=== PATIENT | female | born 1930 | race Caucasian/White ===

== ENCOUNTER 2016-02-17 08:52 | Emergency (ER) | payer MEDICARE ==
[~2016-02-17 08:52] MED LIST: ACET325T51 PO; CHOL10008 PO; CLOB15CR3 TOP; DENO60DI SQ; DESO15CR25 TOP; DOCU250C2 PO; FURO40TA4 PO; HYDR200T PO; HYOS0.1281 SL; IRON PO; LACT460C PO; LIDOCAINE TOPICAL; METO25TA6 PO; MULT-1018 PO; OMEP-113 PO; VIT1CAPS10 PO; [UNRECOGNIZED DRUG - OTHER] PO
[2016-02-17 09:09] VITALS: BP 106/67; PULSE 57; RESP 24; O2SAT 92
--- NOTE | 2016-02-17 09:47 | ED.REPORT ---
HPI-General Illness Date of Service Feb 17, 2016 ED Provider: Yaritza Kim MD Pt is an 85 y/o female w/ a hx of lupus, CHF, severe mitral regurgitation, presenting to the ED with family c/o cough onset 8 days ago. She was seen by her PCP on day of onset and started on a Z-pack without relief. A flu swab was not performed at that time. She c/o associated gradually increasing generalized weakness, mildly increased SOB, low-grade fever, nasal congestion. She denies CP , increased edema, N/V/D. She denies any history of asthma or COPD. Nursing Notes Stated Complaint: POSS PNEUMONIA Chief Complaint: Respiratory Complaints Nursing Notes Reviewed: Yes Allergies: Coded Allergies: Sulfa (Sulfonamide Antibiotics) (Verified Allergy, Unknown, 09/16/13) "In my teens I was given it, I was told if I can avoid it, to avoid it." sertraline (Verified Allergy, Unknown, "SLOW DOWN", 09/18/13) tramadol (Verified Allergy, Unknown, 09/18/13) metoclopramide (Verified Adverse Reaction, Intermediate, Extrapyramidal Symptoms, 10/10/13) codeine (Verified Adverse Reaction, Unknown, JUST DOESN'T LIKE IT, 09/16/13 ) "I just don't like the feeling. I get that way out, spacey feeling." naproxen (Verified Adverse Reaction, Unknown, GI BLEED, 09/16/13) Scheduled ([Lidocaine]) 5 % TOPICAL QID ([natural brand iron]) PO 3x/week Cholecalciferol (Vitamin D3) (Vitamin D3) 1,000 Unit Tab.chew 1,000 UNIT PO DAILY Clobetasol Propionate/Emoll (Clobetasol Emollient 0.05% Crm) 15 Gm Cream..g. 1 APPL TOP BID Denosumab (Prolia) 60 Mg/1 Ml Syringe 60 MG SQ [id number] Desonide (Desonide Cream) 15 Gm Cream..g. 1 APPLIC TOP BID Furosemide (Furosemide) 40 Mg Tablet 40 MG PO BID Hydroxychloroquine Sulfate (Plaquenil) 200 Mg Tablet 200 MG PO DAILY Hyoscyamine SL (Levsin SL) 0.125 Mg Tab.subl 0.125 MG SL TID Lactobacillus Acidophilus (Florajen) 460 Mg Capsule 460 MG PO DAILY Methylprednisolone (Medrol) 21 Tab/Pkg Tablet 1 TAB PO UD Follow package instructions Metoprolol Tartrate (Metoprolol Tartrate) 25 Mg Tablet 37.5 MG PO BID Multivitamin (Multi Vitamin Daily) 1 Each Tablet 1 EACH PO DAILY Omeprazole Magnesium (Omeprazole) 20 Mg Capsule.dr 20 MG PO BID Vit A/Vit C/Vit E/Zinc/Copper (Preservision Areds Softgel) 1 Each Capsule 1 EACH PO BID Scheduled PRN Acetaminophen (Acetaminophen) 325 Mg Tablet 650 MG PO Q4H PRN PRN For Fever Docusate Sodium (Docusate Sodium) 250 Mg Capsule 250 MG PO BID PRN PRN For Constipation General Time Seen by MD: 09:43 Chief Complaint Cough Hx Obtained From: Patient Arrived By: Walk-in Sudden in Onset?: No Onset Occurred: 1 week ago Symptom Duration: Since onset Severity: Current: No pain currently Severity: Maximum: No pain Recent Healthcare: Recent doctor visit Past Medical History Past Medical History Notes: Oncologist: Dr. Chamberlain Quarter Section Ironer: Dr. Stuart PCP: Dr. Jonathan Desai Past Medical History History of diastolic congestive heart failure Anemia. History of recurrent diverticular bleeding Atrial flutter History of gastroesophageal reflux disease. Severe mitral regurgitation by prior echocardiogram. Discoid lupus. Breast caner, status post BL mastectomy Past Surgical History Bilateral Mastectomy Bunionectomy Reports: Appendectomy, Tonsillectomy Smoking History Never Smoker Review of Systems Full Review of Systems Constitutional: Reports: Fever, Weakness - generalized, Denies: Chills Ears / Nose / Throat: Reports: Nasal congestion Respiratory: Reports: Non-productive cough, Shortness of breath Cardiovascular: Denies: Chest pain, Edema Complete sys rev & neg: except as marked. Physical Exam Vital Signs Vital Signs Date Time Temp Pulse Resp B/P Pulse Ox O2 Delivery O2 Flow Rate FiO2 02/17/16 12:42 89 17 129/86 95 Room Air 02/17/16 11:57 87 23 113/73 93 Room Air 02/17/16 11:31 67 16 94 Room Air 02/17/16 10:26 82 23 102/74 95 Room Air 02/17/16 09:09 36.4 57 24 106/67 92 Initial VS: Reviewed, Vital signs abnormal Head / Eyes: Atraumatic, Normocephalic, PERRL ENT: Mucous membranes moist, Conjunctiva normal, No scleral icterus Neck: Supple, Full range of motion Cardiovascular: Regular rate & rhythm, Heart sounds normal, Intact distal pulses Abdomen / GI: Soft, Non-tender, No guarding, No rebound, No distention Extremities: Vascular intact, Neuro intact, No swelling, No tenderness Skin: Warm, Dry, No cyanosis Neurologic: Alert, Oriented, Nonfocal Psychiatric: Mood/affect normal, Behavior normal, Normal thought content General/Constitutional: Awake, Alert, No acute distress, Cooperative, Not toxic appearing Skin warm to touch Respiratory / Chest: Atraumatic, No respiratory distress, No retractions Diffuse wheezing Coarse breath sounds throughout Interpretation & Diagnostics Lab Results Interpretation Result Diagram: 02/17/16 1000 02/17/16 1000 Test 02/17/16 09:30 02/17/16 10:00 Urine Color Straw (YELLOW) Urine Appearance Hazy (CLEAR,HAZY) Urine pH 6.0 (5.0-8.0) Urine Specific [place] 1.030 (1.003-1.035) Urine Protein Tracemg/dL (NEG,TRACE) Urine Glucose (UA) Negativemg/dL (NEGATIVE) Urine Ketones Negativemg/dL (NEGATIVE) Urine Occult Blood Negative (NEGATIVE) Urine Nitrite Negative (NEGATIVE) Urine Bilirubin Negative (NEGATIVE) Urine Urobilinogen Normalmg/dL (NORMAL) Urine Leukocyte Esterase Small (NEGATIVE) Urine RBC 0-2/hpf (0-2) Urine WBC 0-5/hpf (0-5) Urine Epithelial Cells Occasional/hpf (NONE-MOD) Urine Crystals None seen (NONE SEEN) Urine Bacteria Moderate/hpf (NONE-FEW) Urine Hyaline Casts None/lpf (NONE) Urine Granular Casts None seen (NONE SEEN) Urine Waxy Casts None seen (NONE SEEN) Urine Red Blood Cell Casts None seen (NONE SEEN) Urine White Blood Cell Casts None seen (NONE SEEN) Urine Mucus None seen (None Seen) Urine Trichomonas None seen (NONE SEEN) Urine Yeast None (NONE SEEN) Urinalysis Comment Urine Culture Reflexed Indicated Hold Urine Received (Received) White Blood Count 8.1th/mm3 (3.8-10.1) Red Blood Count 4.26mil/mm3 (3.90-5.20) Hemoglobin 14.0g/dL (12.0-15.6) Hematocrit 42.2% (35.0-46.0) Mean Corpuscular Volume 99.1fL (81-100) Mean Corpuscular Hemoglobin 32.9pg (27.0-35.0) Mean Corpuscular Hemoglobin Concent 33.2% (32.0-37.0) Red Cell Distribution Width 12.7% (12.3-15.4) Platelet Count 184bil/L (150-400) Neutrophils (%) (Auto) 69.8% (40-74) Lymphocytes (%) (Auto) 18.3% (14-46) Monocytes (%) (Auto) 10.4% (4-12) Eosinophils (%) (Auto) 0.9% (0-5) Basophils (%) (Auto) 0.5% (0-3) Prothrombin Time 10.7sec (8.1-12.5) Prothromb Time International Ratio 1.00ratio Sodium Level 138mEq/L (134-144) Potassium Level 3.6mEq/L (3.5-5.2) Chloride Level 98mEq/L (97-108) Carbon Dioxide Level 22mmol/L (18-29) Blood Urea Nitrogen 18mg/dL (8-27) Creatinine 0.74mg/dL (0.57-1.00) Estimat Glomerular Filtration Rate 107mL/min (>59) Glucose Level 107mg/dL (60-99) Lactic Acid Level 1.6mmol/L (0.4-2.0) Calcium Level 9.4mg/dL (8.5-10.1) Total Bilirubin 0.4mg/dL (0.0-1.2) Aspartate Amino Transf (AST/SGOT) 33U/L (0-50) Alanine Aminotransferase (ALT/SGPT) 33U/L (0-32) Alkaline Phosphatase 83U/L (25-165) Troponin T < 0.010ug/L (0.0-0.011) Total Protein 7.8g/dL (6.4-8.4) Albumin 4.5g/dL (3.4-5.0) ECG Interpretation ECG Interpretation: A-fib rate 77 Old inferior infarct Time: 10:40 Interpreted by: ED physician Normal ECG Interpretation: No acute ischemic changes, No change from prior ECGs (05/30/15) X-Ray Chest Interpretation Chest Xray Interpretation: IMPRESSION: No acute cardiopulmonary disease process. Dictated by: Estela Hunter MD, PhD on 02/17/2016 at 10:02 Approved by: Estela Hunter MD, PhD on 02/17/2016 at 10:02 View: Portable, 1 view Interpretation / Wet Read by: Interpret - Radiologist Re-Eval/Medical Decision Time of Eval: 11:29 Re-Evaluation/Progress Note: Pt rechecked. Informed pt of plan for treatment. Pt understands and agrees with plan for treatment. F/U and RTER warnings given. All questions addressed. Time of Eval: 12:28 Re-Evaluation/Progress Note: Pt rechecked per request of discharging RN. She became anxious at time of discharge with associated increased respiratory rate and increased work of breathing. Once she was able to be calmed down, respiratory rate decreased to 21, O2 saturation on RA 97%, and heart rate 80 bpm. Still appropriate to be discharged. Counseled Regarding: Diagnosis, Lab results, Need for follow-up, When/why to return to ED Discharge & Departure Primary Impression: COPD exacerbation Additional Impression: Influenza Ruled Out: Acute CHF, STEMI (ST elevation myocardial infarction), Pneumonia Disposition: Home Discharge Condition All VS Reviewed: Yes Condition: Stable Additional Instructions: Your blood work and chest xray has come back very reassuring. Your flu swap did come back negative, however, you look as miserable as every single other flu patient I've seen and I suspect this is still flu. As you have started antibiotics, please finish the zpac you have a nebulizer at home and can use as needed I also suspect there is a degree of wheeze that will benefit from a short course of steroids, I have given you a medrol dose pack to use. I'm so sorry you feel miserable. I hope you heal quickly. Referrals: Jonathan Desai DO (PCP) Sintia Attestation Portions of this note were transcribed by Sanjay Sheffield. I, Dr. Kim personally performed the history, physical exam and medical decision-making; I reviewed and confirmed the accuracy of the information in the transcribed note. Signed by Sintia Pagan, 02/17/16 - 1000 copies to: Jonathan Desai Shawna L MD Feb 17, 2016 09:47 SANJAY SHEFFIELD Feb 17, 2016 10:03
--- NOTE | 2016-02-17 10:04 | DRSVH ---
PROCEDURE: X-RAY CHEST ONE VIEW, PORTABLE ([id number]) INDICATIONS: SOB TECHNIQUE: One view of the chest was acquired. COMPARISON: [facility], , CHEST 1VW (PORTABLE), 10/27/2013, 11:50. FINDINGS: Surgical changes and devices: Bilateral axillary surgical clips are stable. Lungs and pleura: No pleural effusions or pneumothorax. Lungs are clear. Mediastinum: Mediastinal contours appear normal. Heart size is enlarged, but stable compared to colt or examination. Descending aorta is tortuous. Bones and chest wall: No suspicious bony lesions. Overlying soft tissues appear unremarkable. IMPRESSION: No acute cardiopulmonary disease process. Dictated by: Estela Hunter MD, PhD on 02/17/2016 at 10:02 Approved by: Estela Hunter MD, PhD on 02/17/2016 at 10:02
[2016-02-17 10:11] LABS: BASOPHILS % (AUTO) 0.5 % (0-3); EOSINOPHILS % (AUTO) 0.9 % (0-5); MONOCYTES % (AUTO) 10.4 % (4-12); Mean Corpuscular Hemoglobin 32.9 pg (27.0-35.0); Mean Corpuscular Volume 99.1 fL (81-100); NEUTROPHILS % (AUTO) 69.8 % (40-74); Platelet Count 184 bil/L (150-400)
[2016-02-17] MEDS ORDERED: 0.9% Sodium Chloride 1,000 ML IV ONE (10:11)
[2016-02-17] MEDS ORDERED: MethylprednisoLONE Sodium Succinate 62.5 mg/mL 2 mL Inj IVPUSH ONE (10:15)
[2016-02-17] MEDS ORDERED: cefTRIAXone Inj 2,000 MG in IV Premix 1 EACH IV ONE (10:15)
[2016-02-17 10:26] VITALS: BP 102/74; PULSE 82; RESP 23; O2SAT 95
[2016-02-17] MEDS ORDERED: Albuterol-Ipratropium 3 mL Inhalation Solution NEB ONE (11:20)
[2016-02-17] MEDS ORDERED: MTH4T PO (11:26)
[2016-02-17 11:31] VITALS: PULSE 67; RESP 16; O2SAT 94
[2016-02-17 11:57] VITALS: BP 113/73; PULSE 87; RESP 23; O2SAT 93
[2016-02-17 12:42] VITALS: BP 129/86; PULSE 89; RESP 17; O2SAT 95
[2016-02-17 14:25] LABS: APPEARANCE,URINE HAZY (CLEAR,HAZY); COLOR,URINE STRAW (YELLOW); OCCULT BLOOD,URINE NEGATIVE (NEGATIVE)
[2016-02-17 14:26] LABS: UROBILINOGEN,URINE NORMAL (NORMAL)
== END 2016-02-17 12:43 | disposition home or self-care (01) ==
LOC: SED 08:52
DX: J44.1 Chronic obstructive pulmonary disease with (acute) exacerbation (principal); J11.1 Influenza due to unidentified influenza virus with other respiratory manifestations; Z88.2 Allergy status to sulfonamides; Z88.5 Allergy status to narcotic agent; Z88.8 Allergy status to other drugs, medicaments and biological substances
CPT/HCPCS: 36415; 71010; 80053; 81000; 83605; 84484; 85025; 85610; 87040; 87086; 87088; 87186; 87804; 93005; 94664; 96361; 96374; 99285; J2930; J7030; J7620

== ENCOUNTER 2016-10-10 16:35 | Emergency (ER) | payer MEDICARE ==
[~2016-10-10] VITALS: Ht 147.3 cm; Wt 60.0 kg
[~2016-10-10 16:35] MED LIST changes: +MTH4T PO
[2016-10-10 16:46] VITALS: BP 124/65; PULSE 78; RESP 16; O2SAT 97
--- NOTE | 2016-10-10 17:34 | ED.REPORT ---
HPI-Rash / Abscess Date of Service Oct 10, 2016 ED Provider: Matias Truong MD The pt is an 86 year old female with a history of type II diabetes, CHF, atrial flutter and chronic anemia who presents to the ED with family complaining of a rash about her bilateral lower extremities. The rash is characterized by little red spots on her bilateral shins. The pt denies pain or fever that she has had some itching. The pt noticed the rash two days ago and applied lotion to the area to moisturize the area. The pt wears bilateral leg braces but has never experienced a rash related to these before. She suspects that her symptoms are due to the recent hot weather and states that her skin is becoming irritated underneath the braces. Nursing Notes Chief Complaint: Skin Rash/Abscess Nursing Notes Reviewed: Yes Allergies: Coded Allergies: Sulfa (Sulfonamide Antibiotics) (Verified Allergy, Unknown, 09/16/13) "In my teens I was given it, I was told if I can avoid it, to avoid it." sertraline (Verified Allergy, Unknown, "SLOW DOWN", 09/18/13) tramadol (Verified Allergy, Unknown, 09/18/13) metoclopramide (Verified Adverse Reaction, Intermediate, Extrapyramidal Symptoms, 10/10/13) codeine (Verified Adverse Reaction, Unknown, JUST DOESN'T LIKE IT, 09/16/13 ) "I just don't like the feeling. I get that way out, spacey feeling." naproxen (Verified Adverse Reaction, Unknown, GI BLEED, 09/16/13) Scheduled ([Lidocaine]) 5 % TOPICAL QID ([natural brand iron]) PO 3x/week Cholecalciferol (Vitamin D3) (Vitamin D3) 1,000 Unit Tab.chew 1,000 UNIT PO DAILY Clobetasol Propionate/Emoll (Clobetasol Emollient 0.05% Crm) 15 Gm Cream..g. 1 APPL TOP BID Denosumab (Prolia) 60 Mg/1 Ml Syringe 60 MG SQ [id number] Desonide (Desonide Cream) 15 Gm Cream..g. 1 APPLIC TOP BID Furosemide (Furosemide) 40 Mg Tablet 40 MG PO BID Hydroxychloroquine Sulfate (Plaquenil) 200 Mg Tablet 200 MG PO DAILY Hyoscyamine SL (Levsin SL) 0.125 Mg Tab.subl 0.125 MG SL TID Lactobacillus Acidophilus (Florajen) 460 Mg Capsule 460 MG PO DAILY Methylprednisolone (Medrol) 21 Tab/Pkg Tablet 1 TAB PO UD Follow package instructions Metoprolol Tartrate (Metoprolol Tartrate) 25 Mg Tablet 37.5 MG PO BID Multivitamin (Multi Vitamin Daily) 1 Each Tablet 1 EACH PO DAILY Omeprazole Magnesium (Omeprazole) 20 Mg Capsule.dr 20 MG PO BID Vit A/Vit C/Vit E/Zinc/Copper (Preservision Areds Softgel) 1 Each Capsule 1 EACH PO BID Scheduled PRN Acetaminophen (Acetaminophen) 325 Mg Tablet 650 MG PO Q4H PRN PRN For Fever Docusate Sodium (Docusate Sodium) 250 Mg Capsule 250 MG PO BID PRN PRN For Constipation General Time Seen by MD: 17:30 Chief Complaint Rash Hx Obtained From: Patient, Other family... Arrived By: Walk-in Onset Occurred: 2 days ago Symptom Duration: Since onset Recent Healthcare: Recent doctor visit Similar Sx Previous: No Past Medical History Past Medical History Notes: Oncologist: Dr. Chamberlain Tobacco Sizer: Dr. Stuart PCP: Dr. Jonathan Desai Past Medical History History of diastolic congestive heart failure Anemia. History of recurrent diverticular bleeding Atrial flutter History of gastroesophageal reflux disease. Severe mitral regurgitation by prior echocardiogram. Discoid lupus. 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 Physical Exam Initial Vital Signs Vital Signs (First) Date Time Temp Pulse Resp B/P Pulse Ox O2 Delivery O2 Flow Rate FiO2 10/10/16 16:46 36.5 78 16 124/65 97 Room Air Initial VS: Reviewed General/Constitutional: Awake, Alert Skin: Warm, Dry petechial appearing rash on the bilateral lower extremities extending from the ankles to chcf to the knees no blanching, induration, swelling, itching or tenderness equal distribution bilaterally rash is not present anywhere else on body Head / Eyes: Atraumatic, Normocephalic, PERRL, EOMI ENT: Atraumatic, Airway patent, Mucous membranes moist Respiratory / Chest: Atraumatic, Breath sounds NL, Breath sounds = bilat, No respiratory distress Cardiovascular: Heart rate NL, Regular rhythm, Heart sounds NL Upper Extremity / MS: Atraumatic, Full range of motion Lower Extremity / Pelvis / MS: Full range of motion, Neurologic intact, Vascular intact Neurologic: Oriented X3, No motor deficits, No sensory deficits Neck: Atraumatic, Supple, Full range of motion Abdomen: Atraumatic, Soft, Non-tender Back: Atraumatic, Full range of motion Psychiatric: Affect NL, Mood NL Interpretation & Diagnostics Lab Results Interpretation Result Diagram: 10/10/16183810/10/16 183 Test 10/10/16 18:39 10/10/16 18:41 White Blood Count 6.6th/mm3 (3.8-10.1) Red Blood Count 3.95mil/mm3 (3.90-5.20) Hemoglobin 12.7g/dL (12.0-15.6) Hematocrit 37.9% (35.0-46.0) Mean Corpuscular Volume 95.9fL (81-100) Mean Corpuscular Hemoglobin 32.2pg (27.0-35.0) Mean Corpuscular Hemoglobin Concent 33.5% (32.0-37.0) Red Cell Distribution Width 13.1% (12.3-15.4) Platelet Count 220bil/L (150-400) Neutrophils (%) (Auto) 59.0% (40-74) Lymphocytes (%) (Auto) 24.7% (14-46) Monocytes (%) (Auto) 7.8% (4-12) Eosinophils (%) (Auto) 7.5% (0-5) Basophils (%) (Auto) 0.8% (0-3) Prothrombin Time 10.3sec (8.1-12.5) Prothromb Time International Ratio 0.96ratio Sodium Level 140mEq/L (134-144) Potassium Level 3.9mEq/L (3.5-5.2) Chloride Level 102mEq/L (97-108) Carbon Dioxide Level 23mmol/L (18-29) Blood Urea Nitrogen 21mg/dL (8-27) Creatinine 0.75mg/dL (0.57-1.00) Estimat Glomerular Filtration Rate 105mL/min (>59) Glucose Level 89mg/dL (60-99) Calcium Level 9.7mg/dL (8.5-10.1) Hold Schmidt Top Tube Received (Received) Re-Eval/Medical Decision Med Decision/Clinical Course The pt is an 86 year old female with a history of type II diabetes, CHF, atrial flutter and chronic anemia who presents to the ED with family complaining of a rash about her bilateral lower extremities. The rash is characterized by little red spots on her bilateral shins. The pt denies pain or fever that she has had some itching. The pt noticed the rash two days ago and applied lotion to the area to moisturize the area. The pt wears bilateral leg braces but has never experienced a rash related to these before. She suspects that her symptoms are due to the recent hot weather and states that her skin is becoming irritated underneath the braces. Here in the emergency department the patient is afebrile stable vital signs and in no apparent distress. Examination reveals a petechial/nonblanching rash about her bilateral lower extremities and equal distribution extending from her ankles about chcf up her shins. There is rash elsewhere on her body. CBC, chemistries, and coagulation studies unremarkable. Given petechial appearance of her rash I did consider possible platelet disorder. She has had no bleeding is not taking any antiplatelet medications. Platelet counts obtained today are normal. The rashes and an equal distribution bilaterally and in the same location as her leg braces. I suspect that microtrauma from her leg braces may of resulted in this petechial rash. There is no evidence of cellulitis or other infectious process. She has had some mild itching provided with hydrocortisone cream. She is advised to follow up with her primary care physician. Prior to discharge follow-up and return precautions were reviewed in detail with the patient and her family who verbalized understanding and agreement with the plan. The patient was discharged in stable condition. Re-Evaluation/Progress : Time of Eval: 19:33 Patient Status: Condition improved Re-Evaluation/Progress Note: Pt rechecked, who is comfortable. The diagnosis and plan for discharge are discussed. The pt understands and agrees with the plan. All questions are addressed at this time. Counseled Regarding: Diagnosis, Lab results, Need for follow-up, When/why to return to ED Discharge & Departure Impression: Primary Impression: Petechial rash Disposition: Home Discharge Condition All VS Reviewed: Yes Condition: Stable Patient Instructions: Contact Dermatitis (DC) Additional Instructions: Thank you for seeking care at the emergency room. It is difficult for us to make definitive diagnoses in the ED but we believe that you are experiencing contact dermatitis. Our primary goal today in the Emergency Department was to evaluate you for any life-threatening conditions. Your evaluation was reassuring. You will be discharged with a prescription for hydrocortisone cream. Please apply as directed. You should follow-up with your primary doctor in the next week. You should return to the Emergency Department immediately if you develop increased, rash, redness, swelling, any signs of bleeding, fevers or any other concerning signs or symptoms. Thank you for letting us partake in your care today. Referrals: Jonathan Desai DO (PCP) Scribe Attestation Portions of this note were transcribed by Abi Wolff. I, Dr. Truong personally performed the history, physical exam and medical decision-making; I reviewed and confirmed the accuracy of the information in the transcribed note. copies to: Jonathan Desai Beck O MD Oct 10, 2016 17:34 ABI WOLFF Oct 10, 2016 18:01
[2016-10-10 18:45] LABS: BASOPHILS % (AUTO) 0.8 % (0-3); EOSINOPHILS % (AUTO) 7.5 % (0-5); MONOCYTES % (AUTO) 7.8 % (4-12); Mean Corpuscular Hemoglobin 32.2 pg (27.0-35.0); Mean Corpuscular Volume 95.9 fL (81-100); Platelet Count 220 bil/L (150-400)
[2016-10-10 19:07] LABS: INR 0.96 ratio
[2016-10-10 19:10] VITALS: BP 138/82; PULSE 75; RESP 20; O2SAT 97
[2016-10-10] MEDS ORDERED: Hydrocortisone 2.5% 28 Gm Cream TOPICAL PRN (19:30)
== END 2016-10-10 19:49 | disposition home or self-care (01) ==
LOC: SED 16:35
DX: R23.3 Spontaneous ecchymoses (principal); K21.9 Gastro-esophageal reflux disease without esophagitis; I50.30 Unspecified diastolic (congestive) heart failure; Z85.3 Personal history of malignant neoplasm of breast; Z88.2 Allergy status to sulfonamides; Z88.5 Allergy status to narcotic agent; Z88.8 Allergy status to other drugs, medicaments and biological substances